=== PATIENT | male | born 1960 | race Caucasian/White ===

== ENCOUNTER 2021-02-07 08:21 | Outpatient (RCR) | payer OTHER, SELFPAY ==
[2021-02-07] MEDS: COVID-19 VACC, MRNA(PFIZER)/PF 30 MCG/0.3 ML SYRINGE IM (14:07)
[2021-02-28] MEDS: COVID-19 VACC, MRNA(PFIZER)/PF 30 MCG/0.3 ML SYRINGE IM (13:59)
== END 2021-05-06 23:59 ==
LOC: IMMUN 08:21
PROVIDERS: Visit Provider Family Medicine
DX: Z23 Encounter for immunization (principal)
CPT/HCPCS: 0001A; 0002A; 91300

== ENCOUNTER 2025-10-02 18:00 | Emergency (ER) | payer OTHER, SELFPAY ==
[2025-10-02 18:00] VITALS: BP 200/92; PULSE 95; RESP 14; TEMP 36.4; O2SAT 95; BMI 37.2
[2025-10-02 18:03] VITALS: BP 178/100; PULSE 97; RESP 14; O2SAT 100
--- NOTE | 2025-10-02 19:05 | CT_ITS ---
PROCEDURE: CT/Brain/Head without Contrast
--- NOTE | 2025-10-02 19:05 | CT_ITS ---
PROCEDURE: CT/Sinus/Facial Bone
[2025-10-02] MEDS: Lidocaine/Epi/Tetracaine 50 ML 1 APPLIC TOPICAL (19:45)
[2025-10-02] MEDS: Lidocaine 1% (20 ml mdv) 20 ML Vial INFILT (19:50)
[2025-10-02 20:00] VITALS: BP 176/98; PULSE 80; RESP 18; O2SAT 100
[2025-10-02 21:56] VITALS: BP 176/98; PULSE 80
[2025-10-02 22:49] VITALS: BP 113/68; PULSE 82; RESP 18; TEMP 36.4; O2SAT 95
--- NOTE | 2025-10-02 23:33 | EX.ED.GENINJ ---
HPI History of Present Illness Chief Complaint: Head Injury Informant: patient, spouse/S.O. and family Narrative Narrative: 65-year-old male presenting to the emergency room with chief complaint of head injury. Patient was out in his shop when a piece of metal struck him in the face resulting in multiple lacerations. No loss of consciousness. Unsure of his last tetanus. He denies any neck pain from the trauma. He denies other injuries other than to the face. No visual changes. He does not take any anticoagulants. Patient does have concerns with his injuries as his son is getting in 3 days. PFSH PFSH Allergy/AdvReac Type Severity Reaction Status Date / Time No Known Allergies Allergy Verified 10/02/25 18:01 Social History Smoking Status: Never smoker ROS ROS ED Constitutional Constitutional ED: Denies chills or weight loss Eyes Eyes: Denies blurry vision, change in vision or diplopia ENT ENT ED: Denies ear pain, rhinorrhea or sore throat Cardiovascular Cardiovascular: Denies chest pain, orthopnea, palpitations or racing heartbeat Respiratory/Chest Respiratory/Chest: Denies cough, dyspnea or orthopnea Gastrointestinal Gastrointestinal: Denies abdominal pain, diarrhea, nausea or vomiting Genitourinary Genitourinary ED: Denies dysuria, hematuria or urinary frequency Musculoskeletal Musculoskeletal: Denies arthralgias, myalgias or neck pain Integumentary Reports other Details: Multiple complex facial lacerations ; Denies abscess or rash Neurologic Neurologic: Denies headache(s) or weakness Psychiatric Psychiatric: Denies anxiety, depression, suicidal ideation or suicidal thoughts Endocrine Endocrinology: Denies polydipsia, polyphagia or polyuria Allergic/Immunologic Allergic/Immunologic ED: Denies mouth swelling, tongue swelling or urticaria EXAM Physical Exam Const Vital Signs: 10/02/25 18:00 10/02/25 18:03 10/02/25 20:00 Temperature 97.6 F L Temperature Source Temporal Pulse Rate 95 97 80 Respiratory Rate 14 14 18 Blood Pressure 200/92 H 178/100 H 176/98 H Blood Pressure Mean 128 126 124 Pulse Ox 95 100 100 Oxygen Delivery Method Room Air Room Air Room Air 10/02/25 21:56 10/02/25 22:49 Temperature 97.5 F L Temperature Source Pulse Rate 80 82 Respiratory Rate 18 Blood Pressure 176/98 H 113/68 Blood Pressure Mean 124 83 Pulse Ox 95 Oxygen Delivery Method Positive well nourished and well developed General Appearance ED: well developed and NAD HEENT Reports normocephalic and moist mucous membranes HEENT Narrative: Patient has 3 areas of lacerations on his face. The first is a 5 cm complex defect of the skin over the anterior nose. He has a 3 cm curvilinear laceration in the left infraorbital region. There is a large 5 cm flap-like laceration of the upper left lip extending up to the naris. The skin appears very concussed. I do not appreciate any dental trauma. The midface appears stable. No obvious septal hematoma. There is no mandibular tenderness or malocclusion. Ocular exam appears normal. Eyes PERRL and EOMs intact bilaterally Neck no lymphadenopathy, supple and no JVD Resp normal respiratory effort and clear to auscultation bilaterally Cardio regular rate, regular rhythm and no murmurs GI normal to inspection, nondistended, normoactive bowel sounds and non-tender Palpation: soft Back/Spine no CVA tenderness and normal ROM Extremity normal to inspection General Extremety ED: Negative for edema General Extremity: Negative for edema Neuro oriented x3 and CN's II-XII intact bilaterally Virgil Coma Scale: document GCS findings Spontaneous Obeys Commands Oriented 15 Sensorium / Orientation: alert Motor Exam: strength 5/5 throughout Psych mental status grossly normal Mood & Affect: Negative for depressed or tearful Skin no rashes or lesions noted and no wounds MDM MDM MDM Narrative Medical decision making narrative: Differential diagnosis includes fracture septal hematoma ocular trauma intracranial hemorrhage skull fracture dental trauma neurovascular injury CT of the brain and facial bones was negative for acute fracture. There are some changes in the left maxillary sinus which may reflect sinusitis per radiology read but in the setting of trauma is probable more for blood. Let was applied. His tetanus was updated. Due to multiple complex patients in the emergency room I did not want to start suturing him until I had adequate time to dedicate to him. Over the course of about 45 minutes I was able to repair the lacerations. The nasal laceration was locally anesthetized with 1% lidocaine washed with Shur-Clens and explored. It was able to be closed despite the actual skin defect using 10 simple interrupted 5-0 Ethilon sutures. The infraorbital laceration was repaired using 6 simple interrupted 6-0 Ethilon sutures. The upper lip laceration was locally anesthetized using 1% lidocaine and closed using a total of 9 simple interrupted 5-0 Ethilon sutures. I did discuss with the patient that because of the concussed skin some of the skin may not survive but at the time of the repair it looked the high probability that it would survive provide adequate covering. We talked about home care and follow-up. I can refer him to plastic surgery as well as his primary care if he chooses to see them. Stitches will need to be removed in 5 to 7 days. History & Record Review Discussion w/independent historian: Patient and Family Radiography Diagnostic Testing: Clinical Impression(s) from Imaging Studies Brain CT 10/02/25 19:05 IMPRESSION: No acute intracranial process. Fluid within left maxillary sinus may reflect sinusitis. Odontogenic disease within the left upper dentition. Reading Location: [facility] Facial/Sinus 10/02/25 19:05 IMPRESSION: No acute traumatic injuries identified. Left maxillary sinus disease. Reading Location: [facility] Discharge Plan Triage Chief Complaint: Head Injury ED Provider: Maurilio Oconnor Dx/Rx/DC Orders Clinical Impression: Contusion of face, Laceration of face, complex Instructions: ED Facial Contusion, ED Laceration, All Closures Primary Care Provider: Pedro Luis Mac Referrals: Pedro Luis Mac MD [Primary Care Provider, Family Practice] Christophe Gonzalez MD [Med Staff - Active Staff, Plastic Surgery] Referral Note: in 5-7 days for suture removal and reevaluation Activity Restrictions/Additional Instructions: Gently wash with soap and water. I would recommend an antibiotic ointment 1 time per day. As we discussed the laceration on the upper lip is more of a flap laceration. Because of this the danger is that the skin may not survive due to blood flow. He may follow-up with plastic surgery Dr. Gonzalez or with your PCP in 5 to 7 days for suture removal. Expect swelling and bruising to occur. If you have any concerns or worsening please return to the emergency Print Language: Kinyarwanda Disposition Disposition: Home, Self Care Discharge Date/Time: 10/02/25 22:56
== END 2025-10-02 22:56 | disposition home or self-care (01) ==
PROVIDERS: Emergency Provider Emergency Medicine; PCP Family Medicine; Visit Provider Emergency Medicine
DX: S01.511A Laceration without foreign body of lip, initial encounter (principal); S01.21XA Laceration without foreign body of nose, initial encounter; S05.42XA Penetrating wound of orbit with or without foreign body, left eye, initial encounter; W22.8XXA Striking against or struck by other objects, initial encounter; Z23 Encounter for immunization
CPT/HCPCS: 12015; 70450; 70486; 90715; 99283